=== PATIENT | male | born 1980 | race Caucasian/White ===

== ENCOUNTER → 2017-11-26 | Outpatient (CLI) | payer BC ==
[~2017-11-26] MED LIST: IOPAMIDOL 370 MG/ML 200 ML INFUS..BTL INJ ONE; SODIUM CHLORIDE 0.9% 50ML 50 ML ONE
[2017-11-26 18:28] LABS: BLOOD UREA NITROGEN 23 mg/dL (7-26); BUN/CREATININE RATIO 18 (6-25); EST GLOMERULAR FILTRATION RATE > 60 ML/MIN (60-)
--- NOTE | 2017-11-26 19:05 | Diagnostic Imaging Report ---
PROCEDURE: CT scan of the chest WITH intravenous contrast, using PE protocol. TECHNIQUE: The chest was scanned utilizing a multidetector helical scanner from the lung apex through the level of the adrenal glands after the IV administration of 70 cc of Isovue 370. Coronal and sagittal multiplanar reformations were obtained. DLP: 533.4 mGy-cm COMPARISON: None. INDICATIONS: SHORT OF BREATH, CHEST PAIN FINDINGS: Lines/tubes: None. Lungs and Airways: Medial right lower lobe small patchy consolidation (series 2 image 94, sagittal image 67). Similar appearing opacity in the lateral right lower lobe (series 2 image 82). Scattered pulmonary nodules, including (as noted on series 2): Right upper lobe 0.6 cm nodule (image 38) Right upper lobe 0.5 cm nodule (image 31) Right lower lobe 0.5 cm nodule (image 75) Left upper lobe 0.6 cm nodule (image 56) Left lower lobe 0.6 cm nodule (image 85) Contrast timing limits evaluation for subtle pulmonary embolism. However, no central or definite segmental pulmonary embolus identified. Pleura: The pleural spaces are clear. Heart and mediastinum: The thyroid gland is normal. Bulky mediastinal and hilar lymphadenopathy. 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 Soft tissues: Normal. Abdomen: Limited contrast-enhanced views of the upper abdomen show no abnormality within the visualized spleen, pancreas, or kidneys. Liver is diffusely hypoattenuating suggestive of steatosis although evaluation is limited on this arterially timed scan. The adrenal glands are normal. Mildly enlarged mary hepatis nodes measure up to 1.2 cm in short axis. Bones: The visualized bony thorax is within normal limits. IMPRESSION: 1. Limited evaluation for pulmonary embolism secondary to contrast timing. No definite embolus identified to the segmental level. 2. Bulky mediastinal and hilar lymphadenopathy concerning for a lymphoproliferative process such as lymphoma. 3. Few patchy opacities in the right lower lobe and scattered bilateral pulmonary nodules. Suspect findings are related to infectious and inflammatory etiologies or secondary to the lymphoproliferative process. Metastatic disease not excluded. Findings discussed with Ms. Casiano on 11/26/2017 at 1900 hrs. Dictated by: Merlin Rocha M.D. on 11/26/2017 at 19:09 Electronically approved by: Merlin Rocha M.D. on 11/26/2017 at 19:09
== END ==
LOC: RAD 17:29
PROVIDERS: ATTEND Family Medicine
DX: M25.572 Pain in left ankle and joints of left foot (principal); M25.571 Pain in right ankle and joints of right foot; M79.605 Pain in left leg; M79.604 Pain in right leg; M25.532 Pain in left wrist; M25.531 Pain in right wrist; R06.02 Shortness of breath; R91.8 Other nonspecific abnormal finding of lung field
CPT/HCPCS: 36415; 71260; 82565; 84520; 93970; Q9967

== ENCOUNTER → 2018-04-10 | Outpatient (CLI) | payer BC ==
--- NOTE | 2018-04-10 16:15 | Diagnostic Imaging Report ---
ADDENDUM #1 Addendum impression: Comparison with November 26, 2017. The prior mediastinal and hilar lymphadenopathy has essentially resolved with prominent in number lymph nodes. The scattered perilymphatic nodules within the lungs and right lower lobe airspace opacity has resolved. Signed by: Dr. Chriss Osei M.D. on 05/12/2018 3:00 PM ORIGINAL REPORT EXAMINATION: CT scan of the chest without contrast. TECHNIQUE: Helical CT images of the chest were performed from the lung apices to the level of the adrenal glands. No intravenous contrast was administered Coronal and sagittal reformatted images were obtained. COMPARISON: None. CLINICAL HISTORY:Sarcoidosis DISCUSSION: ABSENCE OF INTRAVENOUS CONTRAST DECREASES SENSITIVITY FOR DETECTION OF FOCAL LESIONS AND VASCULAR PATHOLOGY. LINES/TUBES: None. LUNGS AND AIRWAYS: The lungs are clear. No pulmonary nodules, masses or consolidation. The airways are normal, without endobronchial lesions. PLEURA: No pneumothorax or pleural effusions. HEART AND MEDIASTINUM: The thyroid gland is normal. The heart is unremarkable. LYMPH NODES: Prominent lymph nodes within the mediastinum including the right paratracheal measuring short axis I cm and involving the hilar regions. ABDOMEN: Nonobstructing 2 mm right renal calculus. BONES AND SOFT TISSUES: No acute bony abnormalities. IMPRESSION: Prominent mediastinal and hilar lymph nodes. No interstitial lung disease or pulmonary nodules. Signed by: Dr. Chriss Osei M.D. on 04/10/2018 4:11 PM
== END ==
LOC: CT 15:10
PROVIDERS: ATTEND Internal Medicine Pulmonary Disease
DX: D86.1 Sarcoidosis of lymph nodes (principal)
CPT/HCPCS: 71250